=== PATIENT | male | born 1975 | race Caucasian/White ===

== ENCOUNTER 2024-11-16 13:41 | Emergency (ER) | payer MEDICARE ==
[2024-11-16 14:19] VITALS: TEMP 98.4
[2024-11-16 14:33] LABS: Absolute Neutrophil Ct (ANC) 6.96 x10^3/uL (1.78-5.38); BASOPHIL % 0.4 % (0.2-1.2); Basophil (Absolute #) 0.04 x10^3/uL (0.01-0.08); Eosinophil % 1.7 % (0.8-7.0); Eosinophil (Absolute #) 0.16 x10^3/uL (0.04-0.54); Hematocrit 35.5 % (40.1-51.0); Hemoglobin 12.4 g/dL (13.7-17.5); IMMATURE GRAN # 0.03 x10^3u/L (0.001-0.031); IMMATURE GRAN % 0.3 % (0.001-0.429); Lymphocyte (Absolute #) 1.22 x10^3/uL (1.32-3.57); Lymphocytes % 13.1 % (21.8-53.1); Mean Cell Volume 87.9 fL (79.0-92.2); Mean Corpuscular Hemoglobin 30.7 pg (25.7-32.2); Mean Corpuscular Hgb Concent. 34.9 g/dL (32.3-36.5); Mean Platelet Volume 9.5 fL (9.4-12.4); Monocyte (Absolute #) 0.89 x10^3/uL (0.30-0.82); Monocytes % 9.6 % (5.3-12.2); Neutrophil % 74.9 % (34.0-67.9); Platelet Count 298 x10^3/uL (163-337); Red Blood Count 4.04 x10^6/uL (4.63-6.08); Red Cell Distribution Width 12.6 % (11.6-14.4); White Blood Count 9.3 x10^3/uL (4.23-9.07)
[2024-11-16] MEDS ORDERED: DUONEB 0.5-3 MG/3 ml Neb IH ONE (14:42)
[2024-11-16] MEDS: DUONEB 0.5-3 MG/3 ml Neb IH ONE (14:48)
--- NOTE | 2024-11-16 14:50 | XRAY ---
Indication: Cough and short of breath. Comparison: None Portable chest demonstrates bilateral perihilar consolidating/nonconsolidating airspace disease without large effusion. Heart not enlarged with left pacemaker. Bony thorax intact.
[2024-11-16] MEDS ORDERED: TRANDATE 20 MG/4 ML SYRINGE IV ONE (14:51)
[2024-11-16 14:54] LABS: ANION GAP 12.2 MEQ/L (5-15); BILIRUBIN,TOTAL 0.9 mg/dL (0.2-1.3); Calcium 8.6 mg/dL (8.4-10.2); Creatinine 1 3.01 mg/dL (0.66-1.25); EST GLOMERULAR FILTRATION RATE 24.9 ML/MIN; MAGNESIUM 1.9 mg/dL (1.6-2.3); Potassium 4.2 mmol/L (3.5-5.1); Total Protein 7.3 g/dL (6.3-8.2)
[2024-11-16] MEDS: TRANDATE 20 MG/4 ML SYRINGE IV ONE (14:55)
--- NOTE | 2024-11-16 15:04 | ERPHSYRPT ---
- History of Present Illness Time Seen by Provider: 11/16/24 13:44 Source: patient Exam Limitations: no limitations Patient Subjective Stated Complaint: Cough Triage Nursing Assessment: Patient ambulated back to ED and transferred self to bed. Patient's skin sallow in color. Patient A+O X 3. Patient complains of non productive dry cough for the past 3 days. Patient complains of body aches and fatigue also. Lungs noted ot have rales on right side. Patient denies pain or discomfort. Physician History: 49-year-old male with history of congestive heart failure with AICD implant, hypertension, hyperlipidemia, CKD presented in the ER with complaints of increasing cough nonproductive for the last 3 days with associated shortness of breath. Patient reports feeling weak fatigued and tired. He reports having some rattling sounds especially on the right side. No fever or chills reported. Reports mild increased swelling of both lower extremities. Allergies/Adverse Reactions: No Known Drug Allergies Allergy (Unverified 11/16/24 13:56) Hx Influenza Vaccination/Date Given: No Hx Pneumococcal Vaccination/Date Given: No Immunizations Up to Date: Yes Travel Risk - International Travel Have you traveled outside of the country in past 3 weeks: No - Emerging Infectious Disease Are you exhibiting symptoms associated with any current EIDs: Yes Symptoms: Cough: New Onset - Review of Systems Constitutional: Fatigue Eyes: No Symptoms Ears, Nose, & Throat: No Symptoms Respiratory: Cough, Dyspnea, Wheezing Cardiac: No Symptoms Abdominal/Gastrointestinal: No Symptoms Genitourinary Symptoms: No Symptoms Skin: No Symptoms Neurological: No Symptoms Endocrine: No Symptoms Hematologic/Lymphatic: No Symptoms - Past Medical History Pertinent Past Medical History: Yes Neurological History: No Pertinent History ENT History: No Pertinent History Cardiac History: Arrhythmia, Congestive Heart Failure, Hypertension Respiratory History: No Pertinent History Endocrine Medical History: No Pertinent History Musculoskeletal History: No Pertinent History GI Medical History: GERD History: Renal Disease Psycho-Social History: Anxiety Male Reproductive Disorders: No Pertinent History Other Medical History: Stage 4 kidney disease (sees Dr. Bello) - Past Surgical History Past Surgical History: Yes Neuro Surgical History: No Pertinent History Cardiac: Internal Defibrillator, Pacemaker Respiratory: No Pertinent History Gastrointestinal: No Pertinent History Genitourinary: No Pertinent History Musculoskeletal: No Pertinent History Male Surgical History: No Pertinent History Other Surgical History: Pacemaker/defib since 40 y.o. replaced last year 2023 - Social History Smoking Status: Current some day smoker How long have you smoked: years Exposure to second hand smoke: Yes Drug Use: none - Social Determinants of Health Will the patient participate in the screening: Yes Do you worry about a steady place to live?: No Do you have any problems with any of the following?: No known problems In the past 12 months,have you had to go without utilities?: No Transportation Issues: No Has anyone in your support network made you feel unsafe?: No Have you or anyone in your house had to go without enough: No - Nursing Vital Signs Nursing Vital Signs: Initial Vital Signs Temperature 98.4 F 11/16/24 13:57 Pulse Rate 78 11/16/24 13:57 Respiratory Rate 20 11/16/24 13:57 Blood Pressure 209/124 11/16/24 13:57 O2 Sat by Pulse Oximetry 96 11/16/24 13:57 Pain Scale Pain Intensity 0 - Physical Exam General Appearance: no apparent distress, alert Eye Exam: PERRL/EOMI Ears, Nose, Throat Exam: hearing grossly normal, pharyngeal erythema Neck Exam: normal inspection, non-tender, supple, full range of motion Respiratory Exam: diminished breath sounds, crackles/rales, rhonchi, wheezing Cardiovascular/Chest Exam: normal heart sounds, regular rate/rhythm, edema Abdominal/Gastrointestinal Exam: soft, normal bowel sounds, No tenderness Extremity Exam: non-tender, normal range of motion Neurologic Exam: alert, oriented x 3, cooperative SpO2 Interpretation: normal SpO2: 92 O2 Delivery: Room Air - Course EKG Interpreted by Me: RATE ([id number]), Sinus Rhythm, NORMAL AXIS, Non-specific ST Changes, Other (Incomplete left bundle branch block, T wave inversion in lateral leads. No ST elevation) Ordered Tests: Active Orders 24 hr Category Date Time Status Film Projector Operator STAT Care 11/16/24 14:23 Active EKG-ER Only STAT Care 11/16/24 14:22 Active IV Insertion STAT Care 11/16/24 14:22 Active CHEST 1 VIEW (PORTABLE) Stat Exams 11/16/24 14:23 Completed BLOOD CULTURE Stat Lab 11/16/24 14:46 Received CBC W DIFF Stat Lab 11/16/24 14:25 Completed CMP Stat Lab 11/16/24 14:25 Completed Lactic Acid Stat Lab 11/16/24 14:46 Completed MAGNESIUM Stat Lab 11/16/24 14:25 Completed NT PRO BNPII Stat Lab 11/16/24 14:25 Completed PROCALCITONIN Stat Lab 11/16/24 14:30 Completed TROPONIN Q4H Lab 11/16/24 14:25 Completed TROPONIN Q4H Lab 11/16/24 18:30 Ordered TROPONIN Q4H Lab 11/16/24 22:30 Ordered UA W/RFX UR CULTURE Stat Lab 11/16/24 14:23 Completed Respiratory Therapy Assessment DAILY RT 11/16/24 14:50 Active Medication Summary Discontinued Medications Generic Name Dose Route Start Last Admin Trade Name Freq PRN Reason Stop Dose Admin Albuterol/Ipratropium 3 ml 11/16/24 14:22 11/16/24 14:48 Ipratropium/Albuterol Sulfate 3 Ml Ampul.Neb IH 11/16/24 14:23 3 ml STAT ONE Administration Albuterol/Ipratropium Confirm 11/16/24 14:42 Ipratropium/Albuterol Sulfate 3 Ml Ampul.Neb Administered 11/16/24 14:43 Dose 3 ml IH .STK-MED ONE Aspirin 324 mg 11/16/24 16:04 11/16/24 16:26 Aspirin 81 Mg Tab.Chew PO 11/16/24 16:05 324 mg STAT ONE Administration Aspirin Confirm 11/16/24 16:22 Aspirin 81 Mg Tab.Chew Administered 11/16/24 16:23 Dose 324 mg .ROUTE .STK-MED ONE Furosemide 40 mg 11/16/24 15:44 11/16/24 15:57 Furosemide 40 Mg/4 Ml Vial IV 11/16/24 15:45 40 mg STAT ONE Administration Furosemide Confirm 11/16/24 15:52 Furosemide 40 Mg/4 Ml Vial Administered 11/16/24 15:53 Dose 40 mg .ROUTE .STK-MED ONE Ceftriaxone Sodium 2 gm in 100 mls @ 200 mls/hr 11/16/24 15:43 11/16/24 16:46 Rocephin 2 Gm/100 Ml Nacl IV 11/16/24 16:12 Infused STAT ONE Infusion Azithromycin 500 mg in 250 mls @ 250 mls/hr 11/16/24 15:43 11/16/24 16:51 Zithromax 500 Mg/ 250 Ml Nacl Premix IV 11/16/24 16:42 250 ml/hr STAT STA 250 mls/hr Administration Ceftriaxone Sodium Confirm 11/16/24 15:52 Rocephin 2 Gm/100 Ml Nacl Administered 11/16/24 15:53 Dose 2 gm in 100 mls @ ud IV .STK-MED ONE Azithromycin Confirm 11/16/24 16:48 Zithromax 500 Mg/ 250 Ml Nacl Premix Administered 11/16/24 16:49 Dose 500 mg in 250 mls @ ud IV .STK-MED ONE Labetalol HCl 10 mg 11/16/24 14:38 11/16/24 14:55 Labetalol Hcl 20 Mg/4 Ml Disp.Syringe IV 11/16/24 14:39 10 mg STAT ONE Administration Labetalol HCl Confirm 11/16/24 14:51 Labetalol Hcl 20 Mg/4 Ml Disp.Syringe Administered 11/16/24 14:52 Dose 20 mg IV .STK-MED ONE Lorazepam 1 mg 11/16/24 15:44 11/16/24 15:55 Lorazepam 2 Mg/1 Ml 2 Mg Vial IV 11/16/24 15:45 1 mg STAT ONE Administration Lorazepam Confirm 11/16/24 15:51 Lorazepam 2 Mg/1 Ml 2 Mg Vial Administered 11/16/24 15:52 Dose 2 mg .ROUTE .STK-MED ONE Nitroglycerin 1 gm 11/16/24 17:29 11/16/24 17:41 Nitroglycerin 1 Gm Packet TOP 11/16/24 17:30 1 gm STAT ONE Administration Nitroglycerin Confirm 11/16/24 17:37 Nitroglycerin 1 Gm Packet Administered 11/16/24 17:38 Dose 1 gm .ROUTE .STK-MED ONE Lab/Rad Data: Laboratory Result Diagrams 11/16/24 14:25 11/16/24 14:25 Laboratory Results 11/16/24 11/16/24 11/16/24 Range/Units 14:50 14:46 14:30 WBC (4.23-9.07) x10^3/uL RBC (4.63-6.08) x10^6/uL Hgb (13.7-17.5) g/dL Hct (40.1-51.0) % MCV (79.0-92.2) fL MCH (25.7-32.2) pg MCHC (32.3-36.5) g/dL RDW (11.6-14.4) % Plt Count (163-337) x10^3/uL MPV (9.4-12.4) fL Gran % (34.0-67.9) % Immature Gran % (Auto) (0.001-0.429) % Nucleat RBC Rel Count (0.00-0.2) % Eos # (Auto) (0.04-0.54) x10^3/uL Immature Gran # (Auto) (0.001-0.031) x10^3u/L Absolute Lymphs (auto) (1.32-3.57) x10^3/uL Absolute Monos (auto) (0.30-0.82) x10^3/uL Absolute Nucleated RBC (0.00-0.012) x10^3u/L Lymphocytes % (21.8-53.1) % Monocytes % (5.3-12.2) % Eosinophils % (0.8-7.0) % Basophils % (0.2-1.2) % Absolute Granulocytes (1.78-5.38) x10^3/uL Basophils # (0.01-0.08) x10^3/uL Sodium (135-145) mmol/L Potassium (3.5-5.1) mmol/L Chloride (98-107) mmol/L Carbon Dioxide (22-30) mmol/L Anion Gap (5-15) MEQ/L BUN (9-20) mg/dL Creatinine (0.66-1.25) mg/dL Estimated GFR ML/MIN Glucose (74-106) mg/dL Lactic Acid 0.6 (0.4-2.0) Calcium (8.4-10.2) mg/dL Magnesium (1.6-2.3) mg/dL Total Bilirubin (0.2-1.3) mg/dL AST (17-59) U/L ALT (0-50) U/L Alkaline Phosphatase (38-126) U/L Troponin I (0.000-0.033) ng/mL NT-Pro-B Natriuret Pep (<300) pg/mL Serum Total Protein (6.3-8.2) g/dL Albumin (3.5-5.0) g/dL Procalcitonin 0.242 H (0.030-0.080) ng/mL Urine Color (Yellow) Urine Appearance (Clear) Urine pH (4.6-8.0) Ur Specific [place] (1.005-1.030) Urine Protein (Negative) Urine Glucose (UA) (Negative) mg/dL Urine Ketones (Negative) Urine Blood (Negative) Urine Nitrite (Negative) Urine Bilirubin (Negative) Urine Urobilinogen (0.2) mg/dL Ur Leukocyte Esterase (Negative) U Hyaline Cast (Auto) (0-2) /LPF Urine Microscopic RBC (0-5) /HPF Urine Microscopic WBC (0-5) /HPF Ur Epithelial Cells (None Seen) /HPF Urine Bacteria (None Seen) /HPF Urine Culture Reflexed (NO) Influenza Type A Ag NEGATIVE (NEGATIVE) Influenza Type B Ag NEGATIVE (NEGATIVE) RSV (PCR) NEGATIVE (NEGATIVE) SARS-CoV-2 (PCR) NEGATIVE (NEGATIVE) 11/16/24 11/16/24 11/16/24 Range/Units 14:25 14:25 14:25 WBC 9.3 H (4.23-9.07) x10^3/uL RBC 4.04 L (4.63-6.08) x10^6/uL Hgb 12.4 L (13.7-17.5) g/dL Hct 35.5 L (40.1-51.0) % MCV 87.9 (79.0-92.2) fL MCH 30.7 (25.7-32.2) pg MCHC 34.9 (32.3-36.5) g/dL RDW 12.6 (11.6-14.4) % Plt Count 298 (163-337) x10^3/uL MPV 9.5 (9.4-12.4) fL Gran % 74.9 H (34.0-67.9) % Immature Gran % (Auto) 0.3 (0.001-0.429) % Nucleat RBC Rel Count 0.0 (0.00-0.2) % Eos # (Auto) 0.16 (0.04-0.54) x10^3/uL Immature Gran # (Auto) 0.03 (0.001-0.031) x10^3u/L Absolute Lymphs (auto) 1.22 L (1.32-3.57) x10^3/uL Absolute Monos (auto) 0.89 H (0.30-0.82) x10^3/uL Absolute Nucleated RBC 0.00 (0.00-0.012) x10^3u/L Lymphocytes % 13.1 L (21.8-53.1) % Monocytes % 9.6 (5.3-12.2) % Eosinophils % 1.7 (0.8-7.0) % Basophils % 0.4 (0.2-1.2) % Absolute Granulocytes 6.96 H (1.78-5.38) x10^3/uL Basophils # 0.04 (0.01-0.08) x10^3/uL Sodium 136 (135-145) mmol/L Potassium 4.2 (3.5-5.1) mmol/L Chloride 109 H (98-107) mmol/L Carbon Dioxide 19 L (22-30) mmol/L Anion Gap 12.2 (5-15) MEQ/L BUN 36 H (9-20) mg/dL Creatinine 3.01 H (0.66-1.25) mg/dL Estimated GFR 24.9 ML/MIN Glucose 104 (74-106) mg/dL Lactic Acid (0.4-2.0) Calcium 8.6 (8.4-10.2) mg/dL Magnesium 1.9 (1.6-2.3) mg/dL Total Bilirubin 0.90 (0.2-1.3) mg/dL AST 24 (17-59) U/L ALT 17 (0-50) U/L Alkaline Phosphatase 81 (38-126) U/L Troponin I 0.113 H* (0.000-0.033) ng/mL NT-Pro-B Natriuret Pep 09428 (<300) pg/mL Serum Total Protein 7.3 (6.3-8.2) g/dL Albumin 4.0 (3.5-5.0) g/dL Procalcitonin (0.030-0.080) ng/mL Urine Color (Yellow) Urine Appearance (Clear) Urine pH (4.6-8.0) Ur Specific [place] (1.005-1.030) Urine Protein (Negative) Urine Glucose (UA) (Negative) mg/dL Urine Ketones (Negative) Urine Blood (Negative) Urine Nitrite (Negative) Urine Bilirubin (Negative) Urine Urobilinogen (0.2) mg/dL Ur Leukocyte Esterase (Negative) U Hyaline Cast (Auto) (0-2) /LPF Urine Microscopic RBC (0-5) /HPF Urine Microscopic WBC (0-5) /HPF Ur Epithelial Cells (None Seen) /HPF Urine Bacteria (None Seen) /HPF Urine Culture Reflexed (NO) Influenza Type A Ag (NEGATIVE) Influenza Type B Ag (NEGATIVE) RSV (PCR) (NEGATIVE) SARS-CoV-2 (PCR) (NEGATIVE) 11/16/24 Range/Units 14:23 WBC (4.23-9.07) x10^3/uL RBC (4.63-6.08) x10^6/uL Hgb (13.7-17.5) g/dL Hct (40.1-51.0) % MCV (79.0-92.2) fL MCH (25.7-32.2) pg MCHC (32.3-36.5) g/dL RDW (11.6-14.4) % Plt Count (163-337) x10^3/uL MPV (9.4-12.4) fL Gran % (34.0-67.9) % Immature Gran % (Auto) (0.001-0.429) % Nucleat RBC Rel Count (0.00-0.2) % Eos # (Auto) (0.04-0.54) x10^3/uL Immature Gran # (Auto) (0.001-0.031) x10^3u/L Absolute Lymphs (auto) (1.32-3.57) x10^3/uL Absolute Monos (auto) (0.30-0.82) x10^3/uL Absolute Nucleated RBC (0.00-0.012) x10^3u/L Lymphocytes % (21.8-53.1) % Monocytes % (5.3-12.2) % Eosinophils % (0.8-7.0) % Basophils % (0.2-1.2) % Absolute Granulocytes (1.78-5.38) x10^3/uL Basophils # (0.01-0.08) x10^3/uL Sodium (135-145) mmol/L Potassium (3.5-5.1) mmol/L Chloride (98-107) mmol/L Carbon Dioxide (22-30) mmol/L Anion Gap (5-15) MEQ/L BUN (9-20) mg/dL Creatinine (0.66-1.25) mg/dL Estimated GFR ML/MIN Glucose (74-106) mg/dL Lactic Acid (0.4-2.0) Calcium (8.4-10.2) mg/dL Magnesium (1.6-2.3) mg/dL Total Bilirubin (0.2-1.3) mg/dL AST (17-59) U/L ALT (0-50) U/L Alkaline Phosphatase (38-126) U/L Troponin I (0.000-0.033) ng/mL NT-Pro-B Natriuret Pep (<300) pg/mL Serum Total Protein (6.3-8.2) g/dL Albumin (3.5-5.0) g/dL Procalcitonin (0.030-0.080) ng/mL Urine Color Yellow (Yellow) Urine Appearance Clear (Clear) Urine pH 6.5 (4.6-8.0) Ur Specific [place] 1.010 (1.005-1.030) Urine Protein 100 A (Negative) Urine Glucose (UA) Negative (Negative) mg/dL Urine Ketones Negative (Negative) Urine Blood Negative (Negative) Urine Nitrite Negative (Negative) Urine Bilirubin Negative (Negative) Urine Urobilinogen 0.2 (0.2) mg/dL Ur Leukocyte Esterase Negative (Negative) U Hyaline Cast (Auto) NONE SEEN (0-2) /LPF Urine Microscopic RBC 0-2 (0-5) /HPF Urine Microscopic WBC 0-2 (0-5) /HPF Ur Epithelial Cells None Seen (None Seen) /HPF Urine Bacteria None Seen (None Seen) /HPF Urine Culture Reflexed NO (NO) Influenza Type A Ag (NEGATIVE) Influenza Type B Ag (NEGATIVE) RSV (PCR) (NEGATIVE) SARS-CoV-2 (PCR) (NEGATIVE) - Progress Progress: improved, re-examined Air Movement: good Progress Note: 11/16/24 17:51 49-year-old with history of CHF is evaluated in the ER for nonproductive cough and difficulty breathing for the last 3 days with some swelling of lower extremities. Patient has bilateral wheezing and rales more on the right side, given a breathing treatment, feeling better on reevaluation. Patient EKG is sinus rhythm with no ST elevations Workup showed normal white count, chemistries with acute on chronic renal failure with a baseline creatinine of 2 and today is 3.0. Initial troponin of 0.113 and a BNP of 12 800, given a dose of 40 mg IV Lasix. Chest x-ray showed bilateral perihilar airspace disease and is given a dose of Rocephin and Zithromax. Patient also has elevated procalcitonin of 0.2 with a normal lactate of 0.6. I believe patient has a combination of CHF exacerbation with bilateral p neumonia. Blood pressure was in 200s, given labetalol with no significant relief and placed on Nitropaste and currently blood pressure in 170s. I have discussed with Dr. Laurent, reviewed history, workup, recommended transfer to facility with cardiology and nephrology services with patient's history of CHF, I believe it is reasonable and also patient preferred to go to [facility]. I have called [facility] transfer center, discussed with Dr. Zimmerman in the ER, reviewed history, workup and agreed with transfer. Shared the results of workup with patient and family and plan of transfer which they understand and agree. Blood Culture(s) Obtained: Yes Antibiotics given: Yes Discussed with : Marcelo, Other (Dr. Zimmerman [facility]) Will see patient in: ED Counseled pt/family regarding: lab results, diagnosis, rad results Medical Desision Making - Independent Historian Additional History obtained from: Spouse - Discussion of managment Care discussed with:: on-call "doc" Reviewed:: Test results Agreed on:: Treatment plan Will see patient: in ED - Diagnostic Testing Diagnostic test were ordered, analyzed, and reviewed by me: Yes Radiological Interpretation: Reviewed by me - Risk of complications The pt has a mod risk of morbidity or mortality based on: Need for prescription drug management The pt has a high risk of morbidity or mortality based on: Decision regarding hospitilization or escalation of hosp level of care - Departure Departure Disposition: Transfer Clinical Impression: Acute exacerbation of CHF (congestive heart failure), Bilateral pneumonia, Acute on chronic renal failure Condition: Stable Critical Care Time: No Referrals: KIM HALLMAN MD [Primary Care Provider] - Follow up/PCP as directed Instructions: Heart Failure
[2024-11-16 15:28] LABS: INFLUENZA A NEGATIVE (NEGATIVE); INFLUENZA B NEGATIVE (NEGATIVE); RESPIRATORY SYNCTIAL VIRUS NEGATIVE (NEGATIVE); SARS-CoV-2 Xpert Express NEGATIVE (NEGATIVE)
[2024-11-16] MEDS ORDERED: Ativan 2 MG/1 ML VIAL ONE (15:51)
[2024-11-16] MEDS ORDERED: Lasix 40 MG/4 ML ONE (15:52)
[2024-11-16] MEDS ORDERED: ROCEPHIN 2 GM/100 ML NACL 2 GM/100 ML IVPB IV ONE (15:52)
[2024-11-16] MEDS: Ativan 2 MG/1 ML VIAL IV ONE (15:55)
[2024-11-16] MEDS: Lasix 40 MG/4 ML IV ONE (15:57)
[2024-11-16] MEDS: ROCEPHIN 2 GM/100 ML NACL 2 GM/100 ML IVPB IV ONE (16:03)
[2024-11-16] MEDS ORDERED: BABY ASPIRIN 81 MG CHEW ONE (16:22)
[2024-11-16] MEDS: BABY ASPIRIN 81 MG CHEW PO ONE (16:26)
[2024-11-16] MEDS ORDERED: Zithromax 500 MG/ 250 ML NaCl Premix 500 MG/250 ML IVPB IV ONE (16:48)
[2024-11-16] MEDS: Zithromax 500 MG/ 250 ML NaCl Premix 500 MG/250 ML IVPB IV STA (16:51)
[2024-11-16 16:52] LABS: Appearance Clear (Clear); Bacteria None Seen /HPF (None Seen); Bilirubin Negative (Negative); Blood Negative (Negative); Epithelial Cells None Seen /HPF (None Seen); Glucose, Urine Negative (Negative); Hyaline Casts NONE SEEN /LPF (0-2); Ketones Negative (Negative); Leukocyte Esterase Negative (Negative); Nitrite Negative (Negative); Ph 6.5 (4.6-8.0); Protein,Urine Dip 100 (Negative); RBC 0-2 /HPF (0-5); Urobilinogen 0.2 mg/dL (0.2); WBC 0-2 /HPF (0-5)
[2024-11-16 17:09] VITALS: PULSE 86
[2024-11-16] MEDS ORDERED: NITRO-BID 2% UD PACKETS ONE (17:37)
[2024-11-16] MEDS: NITRO-BID 2% UD PACKETS TOP ONE (17:41)
[2024-11-16 19:38] VITALS: BP 148/89; RESP 24; O2SAT 96
== END 2024-11-16 19:46 | disposition short-term general hospital (02) ==
LOC: ED 13:41
DX: J18.9 Pneumonia, unspecified organism (principal); I13.0 Hypertensive heart and chronic kidney disease with heart failure and stage 1 through stage 4 chronic kidney disease, or unspecified chronic kidney disease; I50.9 Heart failure, unspecified; N17.9 Acute kidney failure, unspecified; N18.4 Chronic kidney disease, stage 4 (severe); R05.1 Acute cough; R06.02 Shortness of breath; Z72.0 Tobacco use
CPT/HCPCS: 0241U; 36415; 71045; 80053; 81001; 83605; 83735; 83880; 84145; 84484; 85025; 87040; 93005; 93041; 94640; 96365; 96374; 96375; 99285; J0456; J0696; J1940; J2060; A9270-GY